=== PATIENT | male | born 1945 | race Caucasian/White ===

== ENCOUNTER 2021-09-05 10:56 | Inpatient (IN) | payer BC, MEDICARE, OTHER ==
[~2021-09-05] VITALS: Ht 165.1 cm; Wt 152.0 kg
[2021-09-05] MEDS ORDERED: GLUCAGON HYDROCHLORIDE (RDNA) 1 MG VIAL IV ONE (11:15)
[2021-09-05] MEDS ORDERED: CALCIUM GLUC 1,000mg/50ml-NS 50 ML IV ONE ×2 (11:15→11:20)
[2021-09-05] MEDS ORDERED: GLUCAGON HYDROCHLORIDE (RDNA) 1 MG VIAL ONE (11:24)
[2021-09-05 11:30] LABS: Basophils # (auto) 0.1 10 ^3/uL (0-0.2); Eosinophils # (auto) 0.1 10 ^3/uL (0-0.8); Eosinophils % (auto) 0.6 % (0.0-7.0); Hemoglobin 9.4 g/dL (13.5-17.5); Lymphocytes # (auto) 1.6 10 ^3/uL (0.4-5.4); Monocytes # (auto) 0.9 10 ^3/uL (0-1.3)
[2021-09-05 11:31] LABS: Basophils % (auto) 1.5 % (0.0-2.0); Mean Corpuscular Hemoglobin 26.3 pg (28.0-32.0); Mean Corpuscular Hgb Conc. 31.4 g/dL (32.0-36.0); Mean Corpuscular Volume 83.8 fL (80.0-100.0); Neutrophils # (auto) 7.1 10 ^3/uL (1.6-8.6); Neutrophils % (auto) 72.9 % (37.0-80.0); Nucleated Red Blood Cells % 0.1 %; Red Blood Cells 3.58 10^6/uL (4.5-5.90); White Blood Cell 9.7 10^3/uL (4.4-10.8)
[2021-09-05 11:43] LABS: Albumin 3.4 g/dL (3.4-5.0); INR 1.27 (0.9-1.15); Magnesium 2.1 mg/dL (1.6-2.6); Partial Thromboplastin Time 24.3 sec (23.6-33.0)
[2021-09-05] MEDS ORDERED: MIDAZOLAM HCL 2MG/2ML 2ml VIAL (1mg/ml) ONE (11:44)
[2021-09-05 11:45] LABS: BUN/Creatinine Ratio 12.5
[2021-09-05 11:52] LABS: Bilirubin, Total 0.2 mg/dL (0.2-1.0); Total Protein 6.4 g/dL (6.4-8.2)
[2021-09-05 12:03] LABS: Potassium 6.2 mmol/L (3.5-5.1)
[2021-09-05] MEDS ORDERED: SODIUM BICARBONATE 8.4% INJ 50ML SYRINGE ONE ×3 (12:04→13:41)
[2021-09-05] MEDS ORDERED: InsuLIN REG 1unit/0.01ml Soln (100units/ml) ONE (12:07)
[2021-09-05] MEDS ORDERED: SODIUM BICARBONATE 8.4 % INJ 50ML VIAL IV ONE ×3 (12:15→13:46)
[2021-09-05] MEDS ORDERED: SODIUM ZIRCONIUM CYCL 10 GM PAK PO ONE (12:15)
[2021-09-05] MEDS ORDERED: MIDAZOLAM HCL 2MG/2ML 2ml VIAL (1mg/ml) IV ONE (12:15)
[2021-09-05] MEDS ORDERED: InsuLIN REG 1unit/0.01ml Soln (100units/ml) IV ONE (12:15)
[2021-09-05] MEDS ORDERED: DEXTROSE (50%) 50ML SYRG IV PRN ×4 (12:30→13:30)
[2021-09-05] MEDS ORDERED: ALUM & MAG HYDROX-SIMETH LIQ(MAALOX) 30 ML PO PRN (13:15)
[2021-09-05] MEDS ORDERED: NITROGLYCERIN 0.4 MG SL TAB SL PRN (13:15)
[2021-09-05] MEDS ORDERED: SODIUM CHLORIDE 0.9% 1,000 ML IV SCH (13:15)
[2021-09-05] MEDS ORDERED: MORPHINE SULFATE INJECTION 2 MG/ML SYRG IV PRN (13:15)
[2021-09-05] MEDS ORDERED: SODIUM BICARBONATE 50ML VIAL 50 ML in SOD CHL 0.45% 1,000 ML IV ONE (14:00)
[2021-09-05] MEDS ORDERED: INSULIN LANTUS (GLARGINE) 1 /0.01ml (100units/ml) SC ONE (14:30)
[2021-09-05] MEDS ORDERED: FUROSEMIDE 40 MG/4 ML VIAL IV ONE (14:30)
[2021-09-05 15:30] LABS: Albumin 3.4 g/dL (3.4-5.0); Calcium 8.2 mg/dL (8.5-10.1); Potassium 4.7 mmol/L (3.5-5.1)
[2021-09-05 15:33] LABS: BUN/Creatinine Ratio 15.1; Bilirubin, Total 0.2 mg/dL (0.2-1.0); Total Protein 6.2 g/dL (6.4-8.2)
[2021-09-05] MEDS ORDERED: InsuLIN REG 1unit/0.01ml Soln (100units/ml) SC SCH ×3 (16:00→17:00)
[2021-09-05] MEDS: ACCU-CHEK COMFORT CURVE STRIP VI SCH ×2 (16:00→20:12)
[2021-09-05] MEDS ORDERED: ACCU-CHEK COMFORT CURVE STRIP VI SCH ×3 (16:00→17:00)
[2021-09-05] MEDS: SODIUM ZIRCONIUM CYCL 10 GM PAK PO SCH ×2 (16:18→22:00)
[2021-09-05] MEDS: InsuLIN REG 1unit/0.01ml Soln (100units/ml) SC SCH ×2 (17:00→22:00)
[2021-09-06] VITALS (12 sets, daily range): BP systolic 125–149; BP diastolic 59–88
[2021-09-06] MEDS: ACCU-CHEK COMFORT CURVE STRIP VI SCH ×7 (00:04→23:52)
[2021-09-06] MEDS ORDERED: DOPamine 1600MCG/ML D5W 250 ML IV ONE (01:07)
[2021-09-06 05:13] LABS: Urine Bacteria NONE SEEN /hpf (None Seen); Urine Blood Negative /uL (Negative); Urine Specific Gravity 1.009 (1.001-1.035); Urine WBC <1 /hpf (0 - 3)
[2021-09-06] MEDS: SODIUM ZIRCONIUM CYCL 10 GM PAK PO SCH ×3 (06:00→21:40)
[2021-09-06] MEDS: InsuLIN REG 1unit/0.01ml Soln (100units/ml) SC SCH ×4 (06:55→21:46)
[2021-09-06 09:09] LABS: Albumin 3.8 g/dL (3.4-5.0)
[2021-09-06 09:13] LABS: BUN/Creatinine Ratio 15.7; Bilirubin, Total 0.3 mg/dL (0.2-1.0); Total Protein 6.5 g/dL (6.4-8.2)
[2021-09-06 10:28] LABS: INR 1.28 (0.9-1.15)
[2021-09-06] MEDS ORDERED: LIDOCAINE 2%HCL (LOCAL ANESTH.) INJ 20ML MDV ONE (12:19)
[2021-09-06] MEDS ORDERED: VANCOMYCIN 1GM/250ML 250 ML IV ONE (12:21)
[2021-09-06] MEDS ORDERED: MIDAZOLAM HCL 2MG/2ML 2ml VIAL (1mg/ml) ONE (12:59)
[2021-09-06] MEDS ORDERED: fentaNYL CITRATE 100 MCG/2 ML VL ONE (12:59)
[2021-09-06] MEDS ORDERED: VANCOMYCIN HCL 1000 MG VL ONE (13:01)
[2021-09-06] MEDS ORDERED: IODIXANOL 320MG/ML 100ML BTL IV ONE (13:05)
[2021-09-06] MEDS: amLODIPine BESYLATE 5 MG TAB PO SCH (14:28)
[2021-09-06] MEDS ORDERED: HYDROcodone-ACET 5/325MG TAB PO PRN (19:00)
[2021-09-06] MEDS ORDERED: ACETAMINOPHEN 325 MG TAB PO PRN (19:00)
[2021-09-07] MEDS: ACCU-CHEK COMFORT CURVE STRIP VI SCH ×3 (04:32→11:52)
[2021-09-07] MEDS: SODIUM ZIRCONIUM CYCL 10 GM PAK PO SCH (06:36)
[2021-09-07] MEDS: InsuLIN REG 1unit/0.01ml Soln (100units/ml) SC SCH ×3 (06:40→17:00)
[2021-09-07 09:00] VITALS: BP 132/73
[2021-09-07] MEDS: amLODIPine BESYLATE 5 MG TAB PO SCH (10:39)
[2021-09-07] MEDS ORDERED: LISI-275 PO (12:12)
[2021-09-07] MEDS ORDERED: MET25T PO (12:12)
[2021-09-07] MEDS ORDERED: GLIP-110 PO (12:12)
[2021-09-07] MEDS ORDERED: PANT40T PO (12:12)
[2021-09-07] MEDS ORDERED: METF-372 PO (12:12)
[2021-09-07] MEDS ORDERED: SITA100T7 PO (12:12)
[2021-09-07 16:39] VITALS: BP 130/77
[2021-09-07] MEDS ORDERED: ACCU-CHEK COMFORT CURVE STRIP VI SCH (17:00)
[2021-09-07] MEDS ORDERED: ACET-1079 PO (17:33)
[2021-09-07] MEDS ORDERED: DOXY-286 PO (17:33)
== END 2021-09-07 20:00 | disposition home or self-care (01) | DRG 243 ==
LOC: ER 10:56 → EDBD 10:56 → TELE 10:57 → TELE-CENTR 09-06 17:23
PROVIDERS: ADMIT Internal Medicine; ATTEND Hospitalist
PROC: 0JH606Z Insertion of Pacemaker, Dual Chamber into Chest Subcutaneous Tissue and Fascia, Open Approach (ICD-10-PCS; principal; 2021-09-06)
PROC: 02H63JZ Insertion of Pacemaker Lead into Right Atrium, Percutaneous Approach (ICD-10-PCS; 2021-09-06)
PROC: 02HK3JZ Insertion of Pacemaker Lead into Right Ventricle, Percutaneous Approach (ICD-10-PCS; 2021-09-06)
DX: I44.2 Atrioventricular block, complete (principal); N17.9 Acute kidney failure, unspecified; I49.5 Sick sinus syndrome; E87.5 Hyperkalemia; N18.30 Chronic kidney disease, stage 3 unspecified; I25.10 Atherosclerotic heart disease of native coronary artery without angina pectoris; R55 Syncope and collapse; E11.65 Type 2 diabetes mellitus with hyperglycemia; K21.9 Gastro-esophageal reflux disease without esophagitis; D64.9 Anemia, unspecified; I12.9 Hypertensive chronic kidney disease with stage 1 through stage 4 chronic kidney disease, or unspecified chronic kidney disease; Z85.51 Personal history of malignant neoplasm of bladder; E11.22 Type 2 diabetes mellitus with diabetic chronic kidney disease; E78.5 Hyperlipidemia, unspecified; Z79.899 Other long term (current) drug therapy; Z87.891 Personal history of nicotine dependence; Z95.1 Presence of aortocoronary bypass graft; Z20.822 Contact with and (suspected) exposure to COVID-19
CPT/HCPCS: 36415; 36600; 71045; 76775; 80053; 81001; 82805; 82962; 83036; 83735; 83880; 84132; 84443; 84484; 85025; 85379; 85610; 85730; 86850; 86900; 86901; 87426; 93005; 93306; 96365; 96375; 99152; 99153; 99291; C1785; G0378; J1815; J2250; Q9967